=== PATIENT | male | born 1975 | race Caucasian/White ===

== ENCOUNTER 2017-03-13 13:20 | Emergency (ER) | payer OTHER ==
[2017-03-13 13:29] VITALS: BP 149/92
--- NOTE | 2017-03-13 14:41 | UC ---
HPI Febrile Illness - HPI Summary HPI Summary: 41 YEAR OLD MALE PRESENTS WITH SEVERE NECK PAIN WITH HEADACHE. - History of Current Complaint Chief Complaint: UCGeneralIllness Time Seen by Provider: 03/13/17 14:41 Hx Obtained From: Patient Onset/Duration: Started Weeks Ago Timing: Constant Initial Severity: Severe Current Severity: Severe Pain Scale Used: 0-10 Numeric - 5 - Allergy/Home Medications Allergies/Adverse Reactions: Allergies Allergy/AdvReac Type Severity Reaction Status Date / Time No Known Allergies Allergy Verified 03/13/17 13:29 Home Medications: Home Medications NK [No Home Medications Reported] 03/13/17 [History Confirmed 03/13/17] PMH/Surg Hx/FS Hx/Imm Hx Previously Healthy: Yes - Surgical History Surgical History: Yes Surgery Procedure, Year, and Place: adenoids - Social History Alcohol Use: None Substance Use Type: None Smoking Status (MU): Light Every Day Tobacco Smoker Type: Cigarettes Amount Used/How Often: 1 pk per day Length of Time of Smoking/Using Tobacco: 20+ years Have You Smoked in the Last Year: Yes Review of Systems Constitutional: Fever, Chills, Fatigue Skin: Negative Eyes: Negative ENT: Negative Respiratory: Negative Cardiovascular: Negative Gastrointestinal: Negative Genitourinary: Negative Motor: Negative Neurovascular: Negative Musculoskeletal: Other: - NECK PAIN Neurological: Headache Psychological: Negative All Other Systems Reviewed And Are Negative: Yes Physical Exam Triage Information Reviewed: Yes Appearance: Well-Appearing Vital Signs: Initial Vital Signs Temp 37.5 C 03/13/17 13:25 Pulse 104 03/13/17 13:25 Resp 18 03/13/17 13:25 BP 149/92 03/13/17 13:25 Pulse Ox 100 03/13/17 13:25 Eye Exam: Normal ENT Exam: Normal Dental Exam: Normal Neck exam: Normal Neck: Positive: 1 Respiratory Exam: Normal Cardiovascular Exam: Normal Abdominal Exam: Normal Musculoskeletal: Positive: Other: - NECK PAIN Neurological Exam: Normal Neurological: Positive: Fatigued Psychological Exam: Normal Skin Exam: Normal Course/Dx - Diagnoses Clinic Provider Diagnoses: NECK PAIN. FEVER Discharge - Discharge Plan Condition: Stable Disposition: OTHER Discharge Disposition Comment: PATIENT SUGGESTED TO GO TO THE ER FOR FEVER WITH STIFF NECK. Patient Education Materials: Fever in Adults (ED) Referrals: Hill Young MD [Primary Care Provider] - Additional Instructions: PATIENT SUGGESTED TO GO TO THE ER FOR FEVER WITH STIFF NECK.
== END 2017-03-13 15:14 ==
LOC: UCEAST 13:20
DX: M54.2 Cervicalgia (principal); F17.210 Nicotine dependence, cigarettes, uncomplicated; R50.9 Fever, unspecified
CPT/HCPCS: 99211; G0463

== ENCOUNTER 2017-03-13 15:39 | Emergency (ER) | payer OTHER ==
[2017-03-13 16:36] LABS: Hematocrit 42 % (42-52); Hemoglobin 14.6 g/dl (14.0-18.0); Mean Corpuscular HGB Conc 35 g/dl (31-36); Mean Corpuscular Hemoglobin 31 pg (27-31); Mean Corpuscular Volume 89 fL (80-94); Mean Platelet Volume 8 um3 (7.4-10.4); Red Blood Count 4.76 10^6/ul (4.0-5.4); Red Cell Distribution Width 14 % (10.5-15); White Blood Count 10.1 10^3/ul (3.5-10.8)
--- NOTE | 2017-03-13 16:50 | RAD ---
INDICATION: Cough and fever. COMPARISON: There are no prior studies available for comparison. TECHNIQUE: A portable view of the chest was obtained. The right costophrenic angle is cut off on the film limiting the exam slightly. FINDINGS: Cardiac and mediastinal contours appear to be within normal limits. The lungs are clear. No pleural effusion is seen. IMPRESSION: NO EVIDENCE FOR ACUTE DISEASE.
[2017-03-13 18:01] LABS: BUN/Creatinine Ratio 15.9 (8-20); C Reactive Protein 18.97 mg/L (< 5.00); Calcium 6.4 mg/dL (8.6-10.3); EGFR African American 123.4 (>60); EGFR Non-African American 95.9 (>60); Potassium 4.4 mmol/L (3.5-5.0)
[2017-03-13 18:26] LABS: Urine Bacteria Absent (Absent); Urine Bilirubin Negative (Negative); Urine Glucose Negative (Negative); Urine Nitrite Negative (Negative)
[2017-03-13 19:10] LABS: Globulin 2.9 g/dL (2-4); Total Bilirubin 0.5 mg/dL (0.2-1.0); Total Protein 6.9 g/dL (6.4-8.9)
[2017-03-13] MEDS ORDERED: DOXYcycline CAP(*) 100 MG PO ONE ×2 (19:43→19:44)
[2017-03-13 20:04] VITALS: BP 134/76
--- NOTE | 2017-03-13 20:26 | ED ---
Lizzette Mendez Abhishek, scribed for Tolu Kerr MD on 03/13/17 at 1632 . HPI Febrile Illness - HPI Summary HPI Summary: This patient is a 41 year old M [facility] [place] [facility] with a c/ o of fever and neck stiffness since 3 weeks ago. Pt states original c/o was a head cold on 02/13 and later fevers and neck stiffness began to arise (Tuesday morning; 3 weeks ago). Neck stiffness is described as intermittent. Fever reported to be 101. The patient rates the pain 2/10 in severity. Symptoms aggravated by nothing. Symptoms alleviated by nothing. Patient reports HUERTA intermittent multiple episodes (left side), cough not productive, neck pain in the back of the neck. Patient denies recent nasal congestion. Pt is an employee ultrasound technol (construction worker). - History of Current Complaint Chief Complaint: EDFever Time Seen by Provider: 03/13/17 15:56 Hx Obtained From: Patient Onset/Duration: Started Weeks Ago - 3 weeks ago Timing: Constant Pain Intensity: 2 Pain Scale Used: 0-10 Numeric Aggravating Factors: Nothing Alleviating Factors: Nothing Associated Signs and Symptoms: Cough - not productive, Headache - intermittent, Other: - neck pain along the back of neck. Negative nasal congestion - Allergy/Home Medications Allergies/Adverse Reactions: Allergies Allergy/AdvReac Type Severity Reaction Status Date / Time No Known Allergies Allergy Verified 03/13/17 13:29 PMH/Surg Hx/FS Hx/Imm Hx Endocrine/Hematology History: Denies: Hx Diabetes, Hx Thyroid Disease Cardiovascular History: Denies: Hx Hypertension Respiratory History: Denies: Hx Asthma, Hx Chronic Obstructive Pulmonary Disease (COPD) GI History: Denies: Hx Ulcer - Surgical History Surgery Procedure, Year, and Place: adenoids Infectious Disease History: No Infectious Disease History: Denies: Hx Clostridium Difficile, Hx Hepatitis, Hx Human Immunodeficiency Virus (HIV), Hx of Known/Suspected MRSA, Hx Shingles, Hx Tuberculosis, Hx Known/ Suspected VRE, Hx Known/Suspected VRSA, History Other Infectious Disease, Traveled Outside the [place] in Last 30 Days - Family History Known Family History: Positive: Cardiac Disease - Social History Alcohol Use: None Substance Use Type: Reports: None Smoking Status (MU): Light Every Day Tobacco Smoker Type: Cigarettes Amount Used/How Often: 1 pk per day Length of Time of Smoking/Using Tobacco: 20+ years Have You Smoked in the Last Year: Yes Review of Systems Positive: Fever - 101 Eyes: Negative Positive: Other - Negative nasal congestion Cardiovascular: Negative Positive: Cough - not productive Gastrointestinal: Negative Genitourinary: Negative Positive: Other - neck stiffness Skin: Negative Positive: Headache - intermittent Psychological: Normal All Other Systems Reviewed And Are Negative: Yes Physical Exam - Summary Physical Exam Summary: Appearance: Well-appearing, no pain distress IF BMI > 30 = obese Skin: Warm, dry, color reflects adequate perfusion Head/face: Nml head/face Eyes: Nml eyes ENT: Nml ENT Neck: Supple, non-tender Respiratory: CTA, breath sound present Cardiovascular: RRR Abdomen: Abd soft, non-tender, Bowel: Bowel sounds + Musculoskeletal: Tender in the Para-cervical, no meningeal sign Neurological: Nml neuro (unless it is a neuro Pt, then click the first 4) Psychiatric: Nml psychiatric, affect/mood appropriate Triage Information Reviewed: Yes Vital Signs On Initial Exam: Initial Vitals Temp Pulse Resp BP Pulse Ox 99.9 F 96 18 139/81 98 03/13/17 15:42 03/13/17 15:42 03/13/17 15:42 03/13/17 15:42 03/13/17 15:42 Vital Signs Reviewed: Yes Diagnostics - Vital Signs Vital Signs Temp Pulse Resp BP Pulse Ox 03/13/17 16:10 100.3 F 03/13/17 15:42 99.9 F 96 18 139/81 98 - Laboratory Lab Results: Lab Results 03/13/17 03/13/17 03/13/17 Range/Units 10:15 16:15 16:15 WBC 10.1 (3.5-10.8) 10^3/ul RBC 4.76 (4.0-5.4) 10^6/ul Hgb 14.6 (14.0-18.0) g/dl Hct 42 (42-52) % MCV 89 (80-94) fL MCH 31 (27-31) pg MCHC 35 (31-36) g/dl RDW 14 (10.5-15) % Plt Count 185 (150-450) 10^3/ul MPV 8 (7.4-10.4) um3 Neut % (Auto) 48.7 (38-83) % Lymph % (Auto) 34.3 (25-47) % Cooper % (Auto) 11.2 H (1-9) % Eos % (Auto) 4.7 (0-6) % Baso % (Auto) 1.1 (0-2) % Absolute Neuts (auto) 4.9 (1.5-7.7) 10^3/ul Absolute Lymphs (auto) 3.5 (1.0-4.8) 10^3/ul Absolute Monos (auto) 1.1 H (0-0.8) 10^3/ul Absolute Eos (auto) 0.5 (0-0.6) 10^3/ul Absolute Basos (auto) 0.1 (0-0.2) 10^3/ul Absolute Nucleated RBC 0.02 10^3/ul Nucleated RBC % 0.2 Sodium 133 (133-145) mmol/L Potassium 4.4 (3.5-5.0) mmol/L Chloride 102 (101-111) mmol/L Carbon Dioxide 25 (22-32) mmol/L Anion Gap 6 (2-11) mmol/L BUN 14 (6-24) mg/dL Creatinine 0.88 (0.67-1.17) mg/dL Est GFR ( Amer) 123.4 (>60) Est GFR (Non-Af Amer) 95.9 (>60) BUN/Creatinine Ratio 15.9 (8-20) Glucose 92 (70-100) mg/dL Lactic Acid (0.5-2.0) mmol/L Calcium 6.4 L* (8.6-10.3) mg/dL Ionized Calcium 4.65 (4.65-5.28) mg/dL Total Bilirubin 0.50 (0.2-1.0) mg/dL AST 52 H (13-39) U/L ALT 102 H (7-52) U/L Alkaline Phosphatase 81 (34-104) U/L C-Reactive Protein 18.97 H (< 5.00) mg/L Total Protein 6.9 (6.4-8.9) g/dL Albumin 4.0 (3.2-5.2) g/dL Globulin 2.9 (2-4) g/dL Albumin/Globulin Ratio 1.4 (1-3) Urine Color Urine Appearance Urine pH (5-9) Ur Specific [place] (1.010-1.030) Urine Protein (Negative) Urine Ketones (Negative) Urine Blood (Negative) Urine Nitrate (Negative) Urine Bilirubin (Negative) Urine Urobilinogen (Negative) Ur Leukocyte Esterase (Negative) Urine WBC (Auto) (Absent) Urine RBC (Auto) (Absent) Urine Bacteria (Absent) Urine Glucose (Negative) Influenza A (Rapid) (Negative) Influenza B (Rapid) (Negative) 03/13/17 03/13/17 03/13/17 Range/Units 16:15 16:20 18:10 WBC (3.5-10.8) 10^3/ul RBC (4.0-5.4) 10^6/ul Hgb (14.0-18.0) g/dl Hct (42-52) % MCV (80-94) fL MCH (27-31) pg MCHC (31-36) g/dl RDW (10.5-15) % Plt Count (150-450) 10^3/ul MPV (7.4-10.4) um3 Neut % (Auto) (38-83) % Lymph % (Auto) (25-47) % Cooper % (Auto) (1-9) % Eos % (Auto) (0-6) % Baso % (Auto) (0-2) % Absolute Neuts (auto) (1.5-7.7) 10^3/ul Absolute Lymphs (auto) (1.0-4.8) 10^3/ul Absolute Monos (auto) (0-0.8) 10^3/ul Absolute Eos (auto) (0-0.6) 10^3/ul Absolute Basos (auto) (0-0.2) 10^3/ul Absolute Nucleated RBC 10^3/ul Nucleated RBC % Sodium (133-145) mmol/L Potassium (3.5-5.0) mmol/L Chloride (101-111) mmol/L Carbon Dioxide (22-32) mmol/L Anion Gap (2-11) mmol/L BUN (6-24) mg/dL Creatinine (0.67-1.17) mg/dL Est GFR ( Amer) (>60) Est GFR (Non-Af Amer) (>60) BUN/Creatinine Ratio (8-20) Glucose (70-100) mg/dL Lactic Acid 1.5 (0.5-2.0) mmol/L Calcium (8.6-10.3) mg/dL Ionized Calcium (4.65-5.28) mg/dL Total Bilirubin (0.2-1.0) mg/dL AST (13-39) U/L ALT (7-52) U/L Alkaline Phosphatase (34-104) U/L C-Reactive Protein (< 5.00) mg/L Total Protein (6.4-8.9) g/dL Albumin (3.2-5.2) g/dL Globulin (2-4) g/dL Albumin/Globulin Ratio (1-3) Urine Color Yellow Urine Appearance Clear Urine pH 5.0 (5-9) Ur Specific [place] 1.021 (1.010-1.030) Urine Protein Negative (Negative) Urine Ketones Negative (Negative) Urine Blood 1+ H (Negative) Urine Nitrate Negative (Negative) Urine Bilirubin Negative (Negative) Urine Urobilinogen Negative (Negative) Ur Leukocyte Esterase Trace H (Negative) Urine WBC (Auto) Trace(0-5/hpf) (Absent) Urine RBC (Auto) Trace(0-2/hpf) (Absent) Urine Bacteria Absent (Absent) Urine Glucose Negative (Negative) Influenza A (Rapid) Negative (Negative) Influenza B (Rapid) Negative (Negative) Result Diagrams: 03/13/17 16:15 03/13/17 16:15 Lab Statement: Any lab studies that have been ordered have been reviewed, and results considered in the medical decision making process. - Radiology Chest X-ray Radiology Interpretation Completed By: Radiologist - CXR reveals NO EVIDENCE FOR ACUTE DISEASE. ED physician has reviewed this radiology report and Course/Dx - Course Course Of Treatment: Mr. Duffy reports a three and a half week history of intermittent left sided headaches, left neck stiffness and fevers. He had no meningeal signs but was tender on his left paracervicle area. I didn't appreciate any lymphadenopathy. His labs revealed a normal WBC, a slight elevation of his CRP and some mild transminase elevations. The source is still uncertain. There is no evidence for meningitis. This could be tick-borne and I will treat while labs are pending. - Diagnoses Provider Diagnoses: Fever, intermittent Discharge - Discharge Plan Condition: Stable Disposition: HOME Prescriptions: DOXYcycline CAP(*) [DOXYcycline 100MG CAP(*)] 100 mg PO BID #28 cap Patient Education Materials: Fever in Adults (ED) Referrals: Hill Young MD [Primary Care Provider] - (Follow up with family medicine if condition does not improve within 2 to 3 days ) Additional Instructions: Prescription provided The documentation as recorded by the Lzizette molina Abhishek accurately reflects the service I personally performed and the decisions made by me, Tolu Kerr MD.
[2017-03-15 23:30] LABS: B. miyamotoi PCR, B Negative (Negative); Babesia divergens/MO-1 Negative (Negative); Babesia ducani Negative (Negative); Ehrlichia ewingii/canis Negative (Negative)
[2017-03-16 01:19] LABS: B garinii/B afzelii PCR Negative (Negative); B mayonii PCR Negative (Negative)
== END 2017-03-13 20:02 | disposition home or self-care (01) ==
LOC: ED 15:39
DX: R50.9 Fever, unspecified (principal); M43.6 Torticollis; R05 Cough; R51 Headache; F17.210 Nicotine dependence, cigarettes, uncomplicated
CPT/HCPCS: 36415; 71010; 80053; 81003; 81015; 82330; 83605; 85025; 86140; 87040; 87086; 87476; 87502; 87798; 99284; A9270-GY